=== PATIENT | female | born 1945 | race Caucasian/White ===

== ENCOUNTER 2017-11-11 11:09 | Emergency (ER) | payer OTHER ==
[~2017-11-11] VITALS: Ht 142.2 cm; Wt 45.8 kg
[~2017-11-11 11:09] MED LIST: CYCLOBENZAPRINE5 MG PO; KEFLEX500 MG PO; NORCO 5/3251 TABLET PO; ULTRAM50 MG PO
[2017-11-11 13:16] VITALS: BP 158/95
== END 2017-11-11 13:20 | disposition home or self-care (01) ==
LOC: EME 11:09
DX: S80.02XA Contusion of left knee, initial encounter (principal); S60.222A Contusion of left hand, initial encounter; W01.0XXA Fall on same level from slipping, tripping and stumbling without subsequent striking against object, initial encounter; J45.909 Unspecified asthma, uncomplicated
CPT/HCPCS: 73130; 73564; 99281; 99283